=== PATIENT | male | born 1950 | race Caucasian/White ===

== ENCOUNTER 2020-12-11 11:57 | Emergency (ER) | payer MEDICARE, SELFPAY ==
--- NOTE | 2020-12-11 12:14 | ED.GENADULT ---
HPI - General Adult General Chief complaint: Skin/Abscess/Foreign Body Stated complaint: Mouth Pain Time Seen by Provider: 12/11/20 12:17 Source: patient and RN notes reviewed Mode of arrival: ambulatory Limitations: no limitations History of Present Illness HPI narrative: 70-year-old male presents with complaints of pain and irritation to roof of mouth and jaw for the past 7 days. Davonte reports that over the past week he has irritation to roof of mouth with increase redness and soreness. Cepacol lozenges and Tussin without relief. Ibuprofen with some relief. No fever. No cough or chest congestion. No rhinorrhea and nasal congestion. No drooling, neck, or throat swelling. No pain with swallowing. No voice change. Exacerbating factors consists of smoke exposures and wearing dentures. Denies difficulty swallowing, dental pain, facial pain, facial swelling, ear pain, foreign body sensation, and rash. No chest pain or shortness of breath. Denies nausea, vomiting, and abdominal pain. Tolerating po liquids well. Remains active. The patient reports he have not been diagnosed with COVID-19. The patient reports he is not waiting for the results of a COVID-19 lab test. The patient reports he do not have fever, chills, weakness, or fatigue. The patient reports he do not have a new or worsening cough or shortness of breath. The patient reports he do not have any loss of taste, sore throat, and diarrhea. Denies recent traveling. Denies concerns for COVID-19 or exposures been home with limited outdoor exposure except for essential household needs and return home. At this time, patient is not suspected of having COVID-19. Some parts of this dictation were generated by voice recognition software and may contain typographical and/or grammatical inaccuracies. Related Data Home Medications Medication Instructions Recorded Confirmed albuterol mcg INHALATION 12/11/20 fluoxetine 10 mg PO BID 12/11/20 12/11/20 pantoprazole [Protonix] 40 mg PO QAM 12/11/20 12/11/20 simvastatin 20 mg PO DAILY 12/11/20 12/11/20 sumatriptan succinate [Imitrex] mg PO 12/11/20 Allergies Allergy/AdvReac Type Severity Reaction Status Date / Time codeine Allergy Severe DIFFICULTY Verified 12/03/14 17:57 BREATHING DIPHENHYDRAMINE HCL Allergy Unknown HEART RACES Uncoded 12/03/14 17:57 HURRICANE SPRAY Allergy Unknown DIFFICULTY Uncoded 12/03/14 17:57 SWALLOWING Review of Systems Review of Systems: Narrative: CONSTITUTIONAL: Denies fever, chills, sweats. EYES: Denies visual changes, redness, discharge. ENT: Denies rhinorrhea, congestion, sore throat, otalgia. Complains of pain and irritation to roof of mouth and jaw. CARDIOVASCULAR: Denies chest pain, palpitations, edema. RESPIRATORY: Denies dyspnea, wheezing, cough. GASTROINTESTINAL: Denies abdominal pain, nausea, vomiting, diarrhea. SKIN: Denies rash or itching. No drainage. MUSCULOSKELETAL: Denies acute back pain, joint pain, or myalgia. NEUROLOGIC: Denies numbness or focal weakness. PSYCHIATRIC: Denies anxiety or depression. All other systems reviewed are negative, except as documented in HPI and below. [facility] Past Medical History Medical History COPD (chronic obstructive pulmonary disease) Esophageal stricture History of esophageal dilatation due to esophageal stricture History of gastroesophageal reflux (GERD) Hx of migraines Hypercholesteremia Prophylactic gland removal Davonte reports glands removed from throat Smoker in home Surgical History Surgical History (Updated 12/11/20 @ 12:32 by INDIO Bryant) History of nasal surgery X3 Hx of appendectomy Family History Family History (Updated 12/11/20 @ 12:33 by INDIO Bryant) Father , old age Old age Mother Acute myocardial infarction Social History Social History (Updated 12/11/20 @ 12:34 by INDIO Bryant) Smoking packs per day: 0.5 Smoking cigarettes per d
[2020-12-11 12:15] VITALS: BP 174/73; PULSE 88; RESP 18; TEMP 36.7; O2SAT 99
== END 2020-12-11 12:45 | disposition home or self-care (01) ==
PROVIDERS: Emergency Provider Nurse Practitioner Family
DX: B37.0 Candidal stomatitis (principal); F17.210 Nicotine dependence, cigarettes, uncomplicated; F17.220 Nicotine dependence, chewing tobacco, uncomplicated; J44.9 Chronic obstructive pulmonary disease, unspecified; K21.9 Gastro-esophageal reflux disease without esophagitis; E78.00 Pure hypercholesterolemia, unspecified
CPT/HCPCS: 99213; G0463